=== PATIENT | male | born 1980 | race Caucasian/White ===

== ENCOUNTER 2023-07-20 14:41 | Emergency (ER) | payer OTHER, SELFPAY ==
[2023-07-20 14:49] VITALS: BP 145/92
[2023-07-20 15:04] LABS: % Eosinophils 5.1 % (0-6); % Immature Granulocytes 0.4 % (0-0.5); % Lymphocytes 36.4 % (20.5-51.1); % Monocytes 8.4 % (1.7-9.3); % Neutrophils 48.7 % (42.2-75.2); Absolute Basophils 0.1 10^3/uL (0-0.2); Absolute Eosinophils 0.6 10^3/uL (0-0.7); Absolute Immature Granulocytes 0.1 10^3/uL (0-0.05); Absolute Lymphocytes 4.5 10^3/uL (1.2-3.4); Hematocrit 48.8 % (39.0-52.0); Hemoglobin 17.2 g/dL (13.0-18.0); Mean Corp Hgb Conc. 35.2 g/dL (33.0-37.0); Mean Corpuscular Hgb 28.8 pg (27.0-31.0); Mean Corpuscular Volume 81.7 fL (80.0-94.0); Mean Platelet Volume 9.2 fL (7.4-10.4); Nucleated Red Blood Cells % 0 % (-); Platelet Count 367 10^3/uL (130-400); Red Blood Cell Count 5.97 10^6/uL (4.70-6.10); Red Cell Dist. Width 12.6 % (11.5-14.5); White Blood Cell Count 12.2 10^3/uL (4.8-10.8)
[2023-07-20 15:16] LABS: ALT (SGPT) 56 U/L (0-50); AST (SGOT) 31 U/L (17-59); Albumin 4.3 g/dl (3.5-5.0); Alkaline Phosphatase 82 U/L (38-126); Blood Urea Nitrogen 16 mg/dl (9-20); Calcium 9.9 mg/dl (8.4-10.2); Carbon Dioxide 27 mmol/L (22-30); Chloride 102 mmol/L (98-107); Glucose 210 mg/dl (70-99); Potassium 4.2 mmol/L (3.5-5.1); Sodium 140 mmol/L (135-145); Total Bilirubin 0.9 mg/dl (0.2-1.3); eGFR > 60.00
[2023-07-20 15:26] LABS: Troponin I < 0.012 ng/ml
[2023-07-20 16:33] VITALS: BP 156/117
--- NOTE | 2023-07-20 16:55 | ED.GENMED ---
History of Present Illness
General
Chief Complaint: Heart Rate Problem
Time Seen by Provider: 07/20/23 16:15
Travel History
Have you had any contact with someone who has COVID-19?: No
Do you have any symptoms of coronavirus? Fever > 100 degrees, chills, cough, shortness of breath, sore throat, loss of taste or smell, muscle aches, or headache?: No
History of Present Illness
History of Present Illness:
42-year-old male with history of hypertension and hyperlipidemia presents to the emergency department for evaluation of heart palpitations and flushing beginning yesterday. Symptoms have waxed and waned since that time but worsened today prompting
ER visit. Currently denies any chest pain, palpitations, or shortness of breath. Does have a mild headache but denies dizziness. Has no history of known cardiovascular disease, was admitted to this hospital in March 2022 for chest pain workup
and workup was unremarkable at that time. He is on multiple oral antihypertensives due to challenging BP control
Past History
Past History
ED Past Medical History: HTN
ED Past Surgical History: Other (Orbital trauma)
Social History
Tobacco: Smoker
Alcohol: None
Drug: None
Personal:
Living: with family
Employment: Employed
Family History
Family History: CAD
Review of Systems
Review of Systems
Allergies reviewed?: Yes
All Other Systems: ROS reviewed and negative except as documented in HPI and ROS
Phy Exam
Physical Exam
Physical Exam:
GEN: Well appearing, NAD, WDWN
HEENT: Oral mucosa moist, no scleral icterus
Cardiac: Tachycardic and irregular, no murmur
Lung: No respiratory distress, no tachypnea, lungs clear to auscultation bilaterally
MSK: No gross deformity or injuries
Skin: Good color, no pallor or jaundice, no rashes
Neuro: AO x3, moves all extremities freely
Psych: Calm, cooperative
Course
Orders/Labs/Results
Orders:
Orders
07/20/23 14:50
Electrocardiogram (*1) Urgent
Reason for Study: Chest Pain
EKG- Treatment ONCE
07/20/23 14:56
Complete Blood Count/With Diff Urgent
Comprehensive Metabolic Panel Urgent
TSH Reflex To Free T4 Urgent
Comment: ADD ON
Troponin I Urgent
07/20/23 16:46
Diltiazem HCl [Cardizem] 15 mg IV NOW STA
Magnesium Sulfate 2 Gram/50 ml [Magnesium Sulfate] 2 gram in 50 ml IV NOW
07/20/23 18:01
Add On- LAB Urgent
Tests Added?: TSH w reflex T4
Abnormal Lab Results
07/20/23
14:56
WBC 12.2 H 10^3/uL
(4.8-10.8)
Abs Immat Gran (auto) 0.1 H 10^3/uL
(0-0.05)
Absolute Lymphs (auto) 4.5 H 10^3/uL
(1.2-3.4)
Absolute Monos (auto) 1.0 H 10^3/uL
(0.1-0.6)
Glucose 210 H mg/dl
(70-99)
ALT 56 H U/L
(0-50)
07/20/23 14:56
07/20/23 14:56
Vital Signs
Initial and Last Documented VS:
Initial Vital Signs
Temp Pulse Resp Pulse Ox
98.3 F 50 18 98
07/20/23 14:47 07/20/23 14:47 07/20/23 14:47 07/20/23 14:47
Last Documented Vital Signs
Temp Pulse Resp BP Pulse Ox
98.3 F 90 12 129/104 95
07/20/23 14:47 07/20/23 18:00 07/20/23 18:00 07/20/23 18:00 07/20/23 18:00
MDM/Problems Addressed
MDM/Problems Addressed:
42-year-old male presenting with new onset rapid atrial fibrillation. Although it appears his symptoms began yesterday, the fact that he is asymptomatic while in the ER with heart rates in the 1 20-1 30 range suggest he may have paroxysms of A-fib
prior to this. Given this abnormality he is not a suitable ER cardioversion candidate. He was rate controlled with IV magnesium and diltiazem with good response. Given that we will be discharging him on rate control medications he will be started
on anticoagulants at least for the initial period. I discussed his case with cardiology who recommends we discontinue amlodipine in favor of diltiazem for appropriate rate control. He will contact cardiology office tomorrow for follow-up. ED
return parameters discussed
Comment
Comment:
Initial EKG independently interpreted by me shows rapid atrial fibrillation at a rate of [address] changes concerning for ischemia
*Critical Care Note
Total Time (30-74mins, 75-104mins- exclusive of procedures): Not Applicable
ED Attending Note
-
Portions of this chart may have been created with voice recognition software.� Occasional wrong word or��sound alike� substitutions may have occurred due to the inherent limitations of voice recognition software.
Discharge Plan
Departure
Patient Disposition: Home (Routine Discharge)
Date of Disposition: 07/20/23
Time of Disposition: 18:10
Patient with high blood pressure during this ER visit?: Yes
Discharge Problem:
Atrial fibrillation, new onset
Instructions: Atrial Fibrillation (DC), Going Home on Blood Thinners
Prescriptions:
New
diltiazem HCl 180 mg capsule,extended release 24hr
180 mg PO DAILY Qty: 30 0RF
Eliquis 5 mg tablet
5 mg PO BID Qty: 60 0RF
Discontinued
amlodipine 10 mg tablet
10 mg PO DAILY
No Action
carvedilol 6.25 mg Tablet
6.25 mg PO BID Qty: 180 3RF
benazepril 20 mg tablet
20 mg PO BID Qty: 180 3RF
atorvastatin 80 mg tablet
80 mg PO HS
metformin 1,000 mg tablet
1,000 mg PO BID@0800,1700
omega-3 acid ethyl esters 1 gram capsule
1 cap PO BID
insulin glargine [Lantus Solostar U-100 Insulin] 100 unit/mL (3 mL) insulin pen
10 unit SC HS
Referrals:
Kath Malone CRNP [Family Provider] -
Renata Leary, [Active] - Tomorrow
Activity Restrictions/Additional Instructions:
STOP TAKING AMLODIPINE
Begin the diltiazem tomorrow
We gave you a dose of blood thinner here; begin the prescribed Eliquis tomorrow
Call the cardiology office for follow up tomorrow
Interventions
Interventions:
*Risk Screen - Suicide Last Done: 07/20/23 14:47
*General Assessment Last Done: 07/20/23 14:47
*Neglect/Abuse Screening Last Done: 07/20/23 14:47
ED- Fall Risk Assessment Last Done: 07/20/23 16:18
*ED COVID-19 Vaccine History Last Done: 07/20/23 14:47
ED- Cardiac Assessment Last Done: 07/20/23 16:18
ED- Pulmonary Assessment Last Done: 07/20/23 16:18
[2023-07-20 17:00] VITALS: BP 145/97
[2023-07-20] MEDS: MAGNESIUM SULFATE 50 IV (17:32)
[2023-07-20] MEDS: CARDIZEM 15 MG IV (17:32)
[2023-07-20 17:34] VITALS: BP 142/94
[2023-07-20 18:00] VITALS: BP 129/104
[2023-07-20] MEDS: CARDIZEM CD 180 MG PO (18:22)
[2023-07-20] MEDS: ELIQUIS 5 MG PO (18:22)
[2023-07-20 19:23] LABS: TSH Reflex To Free T4 1.25 uIU/ml (0.47-4.68)
== END 2023-07-20 18:36 | disposition home or self-care (01) ==
LOC: EMR 14:41
PROVIDERS: EMERGENCY PHYSICIAN Emergency Medicine; FAMILY PHYSICIAN Nurse Practitioner Family
DX: I48.91 Unspecified atrial fibrillation (principal); I10 Essential (primary) hypertension; E78.5 Hyperlipidemia, unspecified; F17.200 Nicotine dependence, unspecified, uncomplicated
CPT/HCPCS: 99284; 96374; 96375; 80053; 84443; 84484; 85025; 93005; 99285